=== PATIENT | female | born 2000 | race Asian ===

== ENCOUNTER 2022-04-22 08:02 | Emergency (ER) | payer MEDICAID ==
[~2022-04-22] VITALS: Ht 160 cm; Wt 49.0 kg
[2022-04-22 09:11] VITALS: BP 149/92
[2022-04-22] MEDS: LORAZEPAM 1MG TABLET PO ONE ×2 (09:26→09:39)
== END 2022-04-22 09:45 | disposition home or self-care (01) ==
LOC: ER 08:02
DX: T40.5X1A Poisoning by cocaine, accidental (unintentional), initial encounter (principal); F31.9 Bipolar disorder, unspecified; T51.0X1A Toxic effect of ethanol, accidental (unintentional), initial encounter; Y92.488 Other paved roadways as the place of occurrence of the external cause
CPT/HCPCS: 99283